=== PATIENT | female | born 1995 | race Caucasian/White ===

== ENCOUNTER 2018-12-12 23:27 | Emergency (ER) | payer SELFPAY ==
[2018-12-12] MEDS ORDERED: Acetaminophen 500 MG TAB ONE (23:50)
--- NOTE | 2018-12-13 00:01 | RAD ---
LEFT ANKLE THREE VIEW 12/12/18 HISTORY: Fall. COMPARISON: None. FINDINGS: Mild lateral malleolar soft tissue swelling. No acute displaced fracture or malalignment. Likely an o ld posterior malleolar fracture. IMPRESSION: Findings suggesting a lateral ankle sprain. No acute displaced fracture. POS: [facility]
[2018-12-13] MEDS ORDERED: Ketorolac Tromethamine 60 MG/2 ML VIAL ONE (00:34)
== END 2018-12-13 00:43 | disposition home or self-care (01) ==
LOC: ERS 23:27
DX: S93.402A Sprain of unspecified ligament of left ankle, initial encounter (principal); F17.210 Nicotine dependence, cigarettes, uncomplicated; W01.0XXA Fall on same level from slipping, tripping and stumbling without subsequent striking against object, initial encounter
CPT/HCPCS: 96372; J1885